=== PATIENT | female | born 1970 | race Caucasian/White ===

== ENCOUNTER → 2016-12-25 | Outpatient (CLI) | payer OTHER ==
--- NOTE | 2016-12-31 09:31 | RADIOLOGY REPORT (SQ) ---
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 Prior MRI. Prior MRI biopsy. PATHOLOGIC CORRELATION: DCIS central upper breast. CONTRAST TYPE AND DOSE: 20 mL Prohance. RENAL FUNCTION: None required. The patient is less than 50 years old. TECHNIQUE: MR imaging performed with a dedicated breast coil. Pre contrast T1 and T2 weighted images . Pre contrast and post contrast enhanced T1 weighted images with fat saturation. Subtraction images, 3D thick and thin MIPS, and kinetic analysis performed on an independent workstat ion. ([employer] workstation) Magnet strength: 1.5 T LIMITATIONS: None. FINDINGS: BREAST DENSITY: b. There are scattered areas of fibroglandular density. BACKGROUND PARENCHYMAL ENHANCEMENT:Mild. RIGHT BREAST: Scattered fibroglandular tissue enhancing. No suspicious findings. Benign activity cu rves. No clumped, regional/segmental ductal enhancement. CHEST WALL: Normal tissue planes. No abnormal internal mammary nodes. AXILLA: Normal axillary and retro-pectoral nodes. LEFT BREAST:No enhancing or suspicious masses. No clumped, regional/segmental ductal enhancement. CHEST WALL: Normal tissue planes. No abnormal internal mammary nodes. AXILLA: Normal axillary and retro-pectoral nodes. OTHER:No identified liver, bone, or lung lesions. No other significant incidental findings. IMPRESSION: NORMAL MR OF THE BREASTS. BIRAD: RIGHT BREAST: 1 Negative. LEFT BREAST: 1 Negative. RECOMMENDATION: RECOMMENDED FOLLOW-UP: High risk screening protocol. TECHNICAL DOCUMENTATION: JOB ID: [id number] [email or web address] Rights Reserved
== END ==
LOC: RAD 10:40
PROVIDERS: ATTEND Specialist
DX: C50.411 Malignant neoplasm of upper-outer quadrant of right female breast (principal)
CPT/HCPCS: A9576 ×2; C8906; 77059